=== PATIENT | male | born 1980 | race African-American/Black ===

== ENCOUNTER 2021-01-07 03:28 | Emergency (ER) | payer BC ==
[2021-01-07 04:44] LABS: Urine Blood Trace-lysed (Negative); Urine Glucose Negative (Negative); Urine Protein Trace (Negative); Urine Specific Gravity >=1.030 (1.005-1.030)
[2021-01-07] MEDS ORDERED: AMLODIPINE 10 MG TAB ONE (04:47)
[2021-01-07] MEDS ORDERED: hydroCHLOROthiazide 25 MG TAB ONE (04:48)
[2021-01-07 05:05] LABS: Protime INR 0.97
[2021-01-07 05:06] LABS: Absolute Lymphocytes (CBC) 1.6 K/uL (0.7-4.9); Basophils % 0.5 % (0-1.3); Hematocrit 39.8 % (39.6-49.0); Lymphocytes % 19.6 % (15.3-44.8); MPV 9.4 fL (7.6-11.3); RBC Red Blood Cell Count 4.74 M/uL (4.33-5.43)
[2021-01-07 05:17] LABS: Albumin 3.8 g/dL (3.4-5.0); Bilirubin Total 0.2 mg/dL (0.2-1.0); Potassium 3.8 mmol/L (3.5-5.1); Protein, Total 8.3 g/dL (6.4-8.2); Troponin I 0.04 ng/mL (0.0-0.045)
--- NOTE | 2021-01-07 05:47 | EDPHYS ---
Physician Documentation [facility] Name: Emanuel Thomson Age: 40 yrs Sex: Male : 1980 Arrival Date: 01/07/2021 Time: 03:32 Bed 5 Private MD: ED Physician Sohan Sears HPI: 01/07 04:15 This 40 yrs old Black Male presents to ER via Ambulatory with complaints of Nose Bleed. federico 04:15 The patient presents with a nose bleed, nasal trauma, from. Onset: The symptoms/episode federico began/occurred 2 day(s) ago. Modifying factors: The symptoms are alleviated by nothing. the symptoms are aggravated by nothing. Associated signs and symptoms: The patient has no apparent associated signs or symptoms. Severity of symptoms: At their worst the symptoms were mild in the emergency department the symptoms are unchanged. The patient has not experienced similar symptoms in the past. Historical: - Allergies: 03:42 No Known Allergies; - Home Meds: 03:42 None [Active]; - PMHx: 03:42 None; - Immunization history:: Adult Immunizations not up to date. - Social history:: Smoking status: Patient/guardian denies using. ROS: 04:30 Constitutional: Negative for fever, chills, and weight loss, Eyes: Negative for injury, federico pain, redness, and discharge, Neck: Negative for injury, pain, and swelling, Cardiovascular: Negative for chest pain, palpitations, and edema, Respiratory: Negative for shortness of breath, cough, wheezing, and pleuritic chest pain, Abdomen/GI: Negative for abdominal pain, nausea, vomiting, diarrhea, and constipation, Back: Negative for injury and pain, : Negative for injury, bleeding, discharge, and swelling, MS/Extremity: Negative for injury and deformity, Skin: Negative for injury, rash, and discoloration, Neuro: Negative for headache, weakness, numbness, tingling, and seizure, Psych: Negative for depression, anxiety, suicide ideation, homicidal ideation, and hallucinations, Allergy/Immunology: Negative for hives, rash, and allergies, Endocrine: Negative for neck swelling, polydipsia, polyuria, polyphagia, and marked weight changes, Hematologic/Lymphatic: Negative for swollen nodes, abnormal bleeding, and unusual bruising. Exam: 04:32 Constitutional: This is a well developed, well nourished patient who is awake, alert, federico and in no acute distress. Head/Face: Normocephalic, atraumatic. Eyes: Pupils equal round and reactive to light, extra-ocular motions intact. Lids and lashes normal. Conjunctiva and sclera are non-icteric and not injected. Cornea within normal limits. Periorbital areas with no swelling, redness, or edema. Neck: Trachea midline, no thyromegaly or masses palpated, and no cervical lymphadenopathy. Supple, full range of motion without nuchal rigidity, or vertebral point tenderness. No Meningismus. Chest/axilla: Normal chest wall appearance and motion. Nontender with no deformity. No lesions are appreciated. Cardiovascular: Regular rate and rhythm with a normal S1 and S2. No gallops, murmurs, or rubs. Normal PMI, no JVD. No pulse deficits. Respiratory: Lungs have equal breath sounds bilaterally, clear to auscultation and percussion. No rales, rhonchi or wheezes noted. No increased work of breathing, no retractions or nasal flaring. Abdomen/GI: Soft, non-tender, with normal bowel sounds. No distension or tympany. No guarding or rebound. No evidence of tenderness throughout. Back: No spinal tenderness. No costovertebral tenderness. Full range of motion. Male : Normal genitalia with no discharge or lesions. Skin: Warm, dry with normal turgor. Normal color with no rashes, no lesions, and no evidence of cellulitis. MS/ Extremity: Pulses equal, no cyanosis. Neurovascular intact. Full, normal range of motion. Neuro: Awake and alert, GCS 15, oriented to person, place, time, and situation. Cranial nerves II-XII grossly intact. Motor strength 5/5 in all extremities. Sensory grossly intact. Cerebellar exam normal. Normal gait. Psych: Awake, alert, with orientation to person, place and time. Behavior, mood, and affect are within normal limits. 04:32 ENT: Nose: Nasal septum: is midline, Nasal mucosa: edematous, left two punctate areas, from swab, 3 days ago. 04:38 ECG was reviewed by the Attending Physician. [facility] Vital Signs: 03:40 Temp 98.6; sg 03:43 BP 203 / 121; Pulse 82; Resp 18; Pulse Ox 97% ; Weight 154.22 kg; Height 6 ft. 3 in. (190.50 cm); 05:30 BP 183 / 104; Pulse 81; Resp 18; Pulse Ox 100% on R/A; wh 05:50 BP 182 / 109; Pulse 80; Resp 18; Temp 98.7; Pulse Ox 98% ; ea 03:43 Body Mass Index 42.50 (154.22 kg, 190.50 cm) MDM: 03:56 Patient medically screened. [facility] 04:43 Differential diagnosis: trauma, epistaxis r/t trauma. Data reviewed: vital signs, [facility] nurses notes, lab test result(s), EKG, radiologic studies, plain films. 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 Test interpretation: by ED physician or midlevel provider: ECG, plain radiologic studies. 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 01/07 04:15 Order name: CBC with Diff; Complete Time: 05:13 [facility] 01/07 04:15 Order name: Comprehensive Metabolic Panel; Complete Time: 05:20 [facility] 01/07 04:15 Order name: Troponin I; Complete Time: 05:20 [facility] 01/07 04:31 Order name: PT-INR [facility] 01/07 04:32 Order name: Protime (+INR); Complete Time: 05:20 [facility] 01/07 04:43 Order name: Urine Dipstick-Ancillary; Complete Time: 04:49 [facility] 01/07 04:15 Order name: Chest Single View XRAY [facility] 01/07 04:15 Order name: Urine Dipstick-Ancillary (obtain specimen); Complete Time: 04:43 [facility] 01/07 04:15 Order name: EKG; Complete Time: 04:15 [facility] 01/07 04:15 Order name: EKG - Nurse/Tech; Complete Time: 04:43 [facility] EC:38 Rate is 84 beats/min. Rhythm is regular. QRS Eldridge is Normal. RI interval is normal. QRS federico interval is normal. QT interval is normal. No Q waves. T waves are Normal. No ST changes noted. Clinical impression: NSR w/ Non-specific ST/T Changes and LVH. Interpreted by me. Reviewed by me. Administered Medications: 04:38 Drug: Hydrochlorothiazide 12.5 mg Route: PO; ea 06:00 Follow up: Response: No adverse reaction; Blood pressure is lowered 04:38 Drug: Norvasc (amlodipine) 10 mg Route: PO; ea 06:00 Follow up: Response: No adverse reaction; Blood pressure is lowered 04:38 Drug: Neosporin Ointment 1 application Route: Topical; Site: affected area; ea Disposition: 01/07/21 05:46 Discharged to Home. Impression: Essential (primary) hypertension, Epistaxis, Unspecified kidney failure, Acute kidney failure, unspecified - insufficency. - Condition is Stable. - Discharge Instructions: Potassium Content of Foods, Nosebleed, Adult, Hypertension, Hypertension, Ksvh-hm-[id number], How to Take Your Blood Pressure, Ovpi-sn-Lybm, Chronic Kidney Disease, Adult, Krky-hm-Gush, Nosebleed, Ggbi-jc-Bfmu, Hypokalemia, Managing Your Hypertension. - Prescriptions for Norvasc 10 mg Oral Tablet - take 1 tablet by ORAL route once daily; 30 tablet. Hydrochlorothiazide 12.5 mg Oral Tablet - take 1 tablet by ORAL route once daily; 30 tablet. - Medication Reconciliation Form, Thank You Letter, Antibiotic Education, Prescription Opioid Use form. - Follow up: Aamir Estevez; When: 2 - 3 days; Reason: Recheck today's complaints, Re-evaluation by your physician. Follow up: Bill Condon; When: 2 - 3 days; Reason: Recheck today's complaints, Re-evaluation by your physician. Follow up: Tomas Lugo; When: 2 - 3 days; Reason: Recheck today's complaints, Re-evaluation by your physician. - Problem is new. - Symptoms have improved. Signatures: Dispatcher [employer] EDMS Sohan Sears MD MD cha Attema, Lee, DONOR PROCESSOR-C DONOR PROCESSOR-Cla1 Lindsay Limon, RN RN Stanislaw Pablo RN RN Corrections: (The following items were deleted from the chart) 06:01 05:46 01/07/2021 05:46 Discharged to Home. Impression: Essential (primary) wh hypertension; Epistaxis; Unspecified kidney failure; Acute kidney failure, unspecified - insufficency. Condition is Stable. Discharge Instructions: Nosebleed, Adult, Hypertension, Hypertension, Golr-rr-Jjdu, How to Take Your Blood Pressure, Rfpp-nf-Lbrv, Nosebleed, Insv-vn-Ozor, Managing Your Hypertension, Potassium Content of Foods, Hypokalemia, Chronic Kidney Disease, Adult, Gdab-sa-Qqaw. Prescriptions for Norvasc 10 mg Oral Tablet - take 1 tablet by ORAL route once daily; 30 tablet, Hydrochlorothiazide 12.5 mg Oral Tablet - take 1 tablet by ORAL route once daily; 30 tablet. and Forms are Medication Reconciliation Form, Thank You Letter, Antibiotic Education, Prescription Opioid Use. Follow up: Aamir Estevez; When: 2 - 3 days; Reason: Recheck today's complaints, Re-evaluation by your physician. Follow up: Bill Condon; When: 2 - 3 days; Reason: Recheck today's complaints, Re-evaluation by your physician. Follow up: Tomas Lugo; When: 2 - 3 days; Reason: Recheck today's complaints, Re-evaluation by your physician. Problem is new. Symptoms have improved. federico
--- NOTE | 2021-01-07 05:47 | ER ---
Nurse's Notes [facility] Name: Emanuel Thomson Age: 40 yrs Sex: Male : 1980 Arrival Date: 01/07/2021 Time: 03:32 Bed 5 Private MD: Diagnosis: Essential (primary) hypertension;Epistaxis;Unspecified kidney failure;Acute kidney failure, unspecified-insufficency Presentation: 01/07 03:41 Chief complaint: Patient states: C/O nose bleed yesterday afternoon and then twice wh again this morning. Coronavirus screen: Client denies travel out of the [place] in the last 14 days. At this time, the client does not indicate any symptoms associated with coronavirus-19. Ebola Screen: Patient negative for fever greater than or equal to 101.5 degrees Fahrenheit, and additional compatible Ebola Virus Disease symptoms Patient denies exposure to infectious person. Initial Sepsis Screen: Does the patient meet any 2 criteria? No. Patient's initial sepsis screen is negative. Does the patient have a suspected source of infection? No. Patient's initial sepsis screen is negative. Risk Assessment: Do you want to hurt yourself or someone else? Patient reports no desire to harm self or others. Onset of symptoms was January 07, 2021. 03:41 Method Of Arrival: Ambulatory 03:41 Acuity: COLLINS 4 Historical: - Allergies: 03:42 No Known Allergies; - Home Meds: 03:42 None [Active]; - PMHx: 03:42 None; - Immunization history:: Adult Immunizations not up to date. - Social history:: Smoking status: Patient/guardian denies using. Screenin:42 Abuse screen: Denies threats or abuse. Denies injuries from another. Nutritional screening: No deficits noted. Tuberculosis screening: No symptoms or risk factors identified. Fall Risk None identified. Assessment: 03:43 General: Appears in no apparent distress. Behavior is calm, cooperative, appropriate for age. Pain: Denies pain. Neuro: Level of Consciousness is awake, alert, obeys commands, Oriented to person, place, time, situation, Appropriate for age. Cardiovascular: Capillary refill < 3 seconds. Respiratory: Airway is patent Respiratory effort is even, unlabored, Respiratory pattern is regular, symmetrical. GI: No signs and/or symptoms were reported involving the gastrointestinal system. : No signs and/or symptoms were reported regarding the genitourinary system. EENT: Reports nose bleed. Derm: Skin is intact, is healthy with good turgor, Skin is pink, warm \T\ dry. normal. Musculoskeletal: Circulation, motion, and sensation intact. 05:30 Reassessment: Patient appears in no apparent distress at this time. No changes from previously documented assessment. Patient and/or family updated on plan of care and expected duration. Pain level reassessed. Patient is alert, oriented x 3, equal unlabored respirations, skin warm/dry/pink. 06:00 Reassessment: Patient and/or family updated on plan of care and expected duration. Pain ea level reassessed. Patient is alert, oriented x 3, equal unlabored respirations, skin warm/dry/pink. Discharge instruction given to patient verbalized the understanding of instruction. Pt left ED ambulatory tolerating well. Vital Signs: 03:40 Temp 98.6; sg 03:43 BP 203 / 121; Pulse 82; Resp 18; Pulse Ox 97% ; Weight 154.22 kg; Height 6 ft. 3 in. (190.50 cm); 05:30 BP 183 / 104; Pulse 81; Resp 18; Pulse Ox 100% on R/A; 05:50 BP 182 / 109; Pulse 80; Resp 18; Temp 98.7; Pulse Ox 98% ; ea 03:43 Body Mass Index 42.50 (154.22 kg, 190.50 cm) ED Course: 03:32 Patient arrived in ED. es 03:41 Stanislaw Francis, RN is Primary Nurse. 03:42 Triage completed. 03:43 Patient has correct armband on for positive identification. Bed in low position. Call light in reach. Side rails up X 1. Pulse ox on. NIBP on. 03:43 Arm band placed on right wrist. 03:52 Sohan Sears MD is Attending Physician. sg 04:10 Inserted saline lock: 22 gauge in right hand, using aseptic technique. 04:53 Chest Single View XRAY In Process Unspecified. EDMS 05:45 Aamir Estevez MD is Referral Physician. federico 05:45 Bill Condon MD is Referral Physician. federico 05:45 Tomas Lugo MD is Referral Physician. [facility] 05:59 No provider procedures requiring assistance completed. IV discontinued, intact, bleeding controlled, No redness/swelling at site. Administered Medications: 04:38 Drug: Hydrochlorothiazide 12.5 mg Route: PO; ea 06:00 Follow up: Response: No adverse reaction; Blood pressure is lowered 04:38 Drug: Norvasc (amlodipine) 10 mg Route: PO; ea 06:00 Follow up: Response: No adverse reaction; Blood pressure is lowered 04:38 Drug: Neosporin Ointment 1 application Route: Topical; Site: affected area; ea Outcome: 05:46 Discharge ordered by . [facility] 06:00 Discharged to home ambulatory. 06:00 Condition: stable 06:00 Discharge instructions given to patient, Instructed on discharge instructions, follow up and referral plans. medication usage, POC Demonstrated understanding of instructions, follow-up care, medications, POC Prescriptions given X 2. 06:01 Patient left the ED. Signatures: Dispatcher [employer] EDArnav Hernandez RN RN sg Anderson, Corey, MD MD cha Salyer, Edna es Antunez, Elena, RN RN ea Habalo, Winsy, RN RN
--- NOTE | 2021-01-07 09:27 | RAD REPORT ---
EXAM DESCRIPTION: Edgar Single View01/07/2021 4:53 am CLINICAL HISTORY: cough COMPARISON: none FINDINGS: The lungs appear clear of acute infiltrate. The heart is normal size IMPRESSION: No acute abnormalities displayed
[2021-01-07 16:15] VITALS: TEMP 98.6
[2021-01-07 16:18] VITALS: BP 183/104; O2SAT 100
== END 2021-01-07 06:01 | disposition home or self-care (01) ==
LOC: ER 03:28
DX: R04.0 Epistaxis (principal); N17.9 Acute kidney failure, unspecified; I10 Essential (primary) hypertension
CPT/HCPCS: 36415; 71045; 80053; 81003; 84484; 85025; 85610; 93005; 99284